=== PATIENT | female | born 1975 | race African-American/Black ===

== ENCOUNTER 2017-07-31 17:30 | Emergency (ER) | payer MEDICAID ==
[2017-07-31 17:32] VITALS: BP 155/87; PULSE 97; RESP 16; TEMP 99; O2SAT 98
--- NOTE | 2017-07-31 19:18 | PD ---
HPI Chief Complaint: Related Problem Time Seen by Provider: 17:54 Travel History International Travel<30 days: No Contact w/Intl Traveler<30days: No Traveled to known affect area: No History of Present Illness HPI Patient is 41-year-old female presenting to the emergency department for evaluation of vaginal bleeding. Patient states it started today, she states it is mild spotting, she denies any clots. Patient reports being approximately 8 weeks . She has had some mild abdominal cramping. She denies any dysuria, vomiting, nausea, fevers. . PFSH Past Medical History Medical History: Denies Significant Hx ?: LMP: 06/11/17 Social History Tobacco Use: No Allergies-Medications (Allergen,Severity, Reaction): Coded Allergies: No Known Allergies (Unverified , 07/31/17) Review of Systems Except as stated in HPI: all other systems reviewed are Neg Gastrointestinal: Positive: Abdominal Pain (cramping) Genitourinary: Positive: Vaginal Bleeding Physical Exam Narrative GENERAL: Well developed, well-nourished, alert female. In no acute distress. SKIN: Warm and dry. HEAD: Normocephalic. EYES: No scleral icterus. No injection or drainage. NECK: Supple, trachea midline. No JVD or lymphadenopathy. CARDIOVASCULAR: Regular rate RESPIRATORY: No accessory muscle use. Data Data Last Documented VS Vital Signs Date Time Temp Pulse Resp B/P (MAP) Pulse Ox O2 Delivery O2 Flow Rate FiO2 07/31/17 17:32 99.0 97 16 155/87 (109) 98 Orders [facility] [place] Medical Decision Making Medical Screen Exam Complete: Yes Emergency Medical Condition: Yes Interpretation(s) Vital Signs Date Time Temp Pulse Resp B/P (MAP) Pulse Ox O2 Delivery O2 Flow Rate FiO2 07/31/17 17:32 99.0 97 16 155/87 (109) 98 Differential Diagnosis Threatened miscarriage versus ectopic versus UTI versus other Narrative Course Patient is a 41-year-old female that presented to emergency for evaluation of vaginal bleeding during . Patient's vital signs are stable, she is awaiting bed placement. Protocol orders placed in triage. Patient was called to be petted, she was no longer in the emergency department. Patient left AGAINST MEDICAL ADVICE. Diagnosis Primary Impression: Left against medical advice Penny Randolph Jul 31, 2017 19:18
== END 2017-07-31 19:28 | disposition left against medical advice (07) ==
LOC: NED 17:30
DX: O46.91 Antepartum hemorrhage, unspecified, first trimester (principal); Z3A.08 8 weeks gestation of pregnancy
CPT/HCPCS: 99281

== ENCOUNTER → 2017-08-29 | Outpatient (CLI) | payer MEDICARE | LOC: HPND 08:40 | PROVIDERS: ATTEND Obstetrics & Gynecology | DX: O09.521 Supervision of elderly multigravida, first trimester (principal) | CPT/HCPCS: 76801 ==

== ENCOUNTER 2017-10-02 05:40 | Emergency (ER) | payer MEDICARE ==
[~2017-10-02] VITALS: Ht 167.6 cm; Wt 115.0 kg
[2017-10-02 05:46] VITALS: BP 132/67; PULSE 102; RESP 18; TEMP 98.7; O2SAT 94
[2017-10-02] MEDS ORDERED: SODIUM CHLOR 0.9% 1000 ML INJ 1,000 ML IV ONE (06:30)
[2017-10-02] MEDS ORDERED: ONDANSETRON HCL 4 MG/2 ML VIAL IV ONE (06:30)
--- NOTE | 2017-10-02 07:01 | PD ---
HPI Chief Complaint: GI Complaint Time Seen by Provider: 06:11 Travel History International Travel<30 days: No Contact w/Intl Traveler<30days: No Traveled to known affect area: No History of Present Illness HPI The patient is a 41 year old female at 15 weeks gestation who presents to the [facility] emergency department with a history of nausea and vomiting that she reports is been persistent since she first found out she was in her early . She reports that she was given a nausea medication by her [employer]LAY [employer]PER[employer], however she ran out of it just prior to the weekend. Her CLAY TEMPERER is . The patient reports that she has had her initial ultrasound in this which confirmed an intrauterine at 10 weeks and August 25, 2017. She denies having any vaginal bleeding or vaginal discharge. She reports that she believes that she has started to feel the baby move. She reports that she has had vomiting at least one time per day. She reports that the vomiting has become more aggressive through the weekend since she ran out of the nausea medication. She reports that she has noticed what appeared to be some blood-tinged emesis. She denies having any dysuria, hematuria, urinary urgency, or frequency. She denies having any new or worsening lower extremity edema. She reports that she has midepigastric abdominal pain and a sensation of burning when she lies down. She reports that she has had reflux in the past, however it is usually more prominent only when she eats spicy foods. On review of systems otherwise, the patient denies having any known recent fevers, cough, congestion, neck pain, chest pain, shortness of breath, diarrhea, or neurologic symptoms. LMP: June 11, 2017. [facility] Past Medical History Narrative Medical the patient's past medical history is significant for having a miscarriage in early in 2016, history of intermittent acid reflux. Medical History: Denies Significant Hx ?: Past Surgical History Narrative Surgical The patient's past surgical history is significant for having a left leg. Other Surgery: Yes Social History Alcohol Use: No Tobacco Use: No Substance Use: No Allergies-Medications (Allergen,Severity, Reaction): Coded Allergies: No Known Allergies (Unverified , 10/02/17) Reported Meds & Prescriptions Reported Meds & Active Scripts Active No Active Prescriptions or Reported Medications Review of Systems Except as stated in HPI: all other systems reviewed are Neg General / Constitutional: No: Fever Eyes: No: Visual changes HENT: No: Headaches Cardiovascular: No: Chest Pain or Discomfort Respiratory: No: Shortness of Breath Gastrointestinal: Positive: Nausea, Vomiting, Abdominal Pain, Indigestion, No: Diarrhea Genitourinary: No: Dysuria Musculoskeletal: No: Pain Skin: No Rash Neurologic: No: Weakness Psychiatric: No: Depression Endocrine: No: Polydipsia Hematologic/Lymphatic: No: Easy Bruising Physical Exam Narrative General: The patient is a well-developed well-nourished female in no acute distress. Head and Neck exam: Head is normocephalic atraumatic. Eyes: EOMI, pupils are equal round and reactive to light. Nose: Midline septum with pink mucous membranes Mouth: Dentition unremarkable. Moist mucus membranes. Posterior oropharynx is not erythematous. No tonsillar hypertrophy. Uvula midline. Airway patent. Neck: No palpable lymphadenopathy. No nuchal rigidity. No thyromegaly. Cardiovascular: Regular rate and rhythm without murmurs, gallops, or rubs. Lungs: Clear to auscultation bilaterally. No wheezes, rhonchi, or rales. Abdomen: Soft, with reported discomfort on deep palpation of the midepigastric area, no other tenderness on palpation of the other quadrants of the abdomen. Normal bowel sounds are audible. No tenderness on palpation of McBurney's point. Negative Cox sign. No guarding, rebound, or rigidity. Extremities: No clubbing, cyanosis, or edema. 2+ pulses in all 4 extremities. No calf tenderness on palpation Back: No costovertebral angle tenderness to palpation. Neurologic Exam: Grossly nonfocal. Skin Exam: No rash noted. Intact skin that is warm and dry. Data Data Last Documented VS Vital Signs Date Time Temp Pulse Resp B/P (MAP) Pulse Ox O2 Delivery O2 Flow Rate FiO2 10/02/17 05:46 98.7 102 18 132/67 (88) 94 Orders Orders Complete Blood Count With Diff (10/02/17 06:24) Comprehensive Metabolic Panel (10/02/17 06:24) Urinalysis - C+S If Indicated (10/02/17 06:24) Magnesium (Mg) (10/02/17 06:24) Iv Access Insert/Monitor (10/02/17 06:24) Ecg Monitoring (10/02/17 06:24) Oximetry (10/02/17 06:24) Type And Screen (10/02/17 06:24) Ed Urine Pregnancytest Poc (10/02/17 06:24) Sodium Chlor 0.9% 1000 Ml Inj (Ns 1000 M (10/02/17 06:30) Ondansetron Inj (Zofran Inj) (10/02/17 06:30) Ed Poc Ultrasound (10/02/17 ) [facility] Medical Decision Making Medical Screen Exam Complete: Yes Emergency Medical Condition: Yes Medical Record Reviewed: Yes Differential Diagnosis Gastritis, versus hemorrhagic esophagitis, versus pancreatitis, versus biliary colic Narrative Course During the course of the patient's emergency department visit, the patient's history, examination, and differential diagnosis were reviewed with the patient. The patient was placed on a fiberglass boat maker with oximetry and frequent blood pressure monitoring. The patient had IV access obtained and blood work sent for analysis. A bedside ultrasound was done by me through transabdominal route. The patient was noted to have an active intrauterine . heart tones were in the 150s. The patient was initially provided normal saline 1 L IV fluid bolus, Zofran 4 mg IV. The patient's laboratory studies are pending at the conclusion of my shift. The patient's case will be checked out to the oncoming emergency physician to disposition the patient based on the conclusion of her workup. Procedures Procedure Narrative Emergency Department Pelvic ultrasound was performed with patient consent. The curvilinear probe was used in the transverse and sagittal views within the suprapubic region revealing single intrauterine . heart rate was 156. The patient is noted to have an active fetus on examination Diagnosis Primary Impression: Abdominal pain during Qualified Codes: O26.892 - Other specified related conditions, second trimester; R10.9 - Unspecified abdominal pain Additional Impression: Vomiting Qualified Codes: R11.2 - Nausea with vomiting, unspecified Scripts No Active Prescriptions or Reported Meds Fabi Johnson MD Oct 02, 2017 07:01
[2017-10-02 07:03] LABS: AUTOMATED NEUTROPHIL # 7.8 TH/MM3 (1.8-7.7); BACTERIA, URINE RARE /hpf; BASOPHIL # 0.1 TH/MM3 (0-0.2); BASOPHIL % 0.8 % (0.0-2.0); BILIRUBIN, URINE NEG (NEG); BLOOD, URINE TRACE (NEG); EOSINOPHIL # 0.4 TH/MM3 (0-0.4); EOSINOPHIL % 3.4 % (0.0-4.0); GLUCOSE,URINE NEG (NEG); HEMATOCRIT 32.2 % (35.0-46.0); HEMOGLOBIN 11.2 GM/DL (11.6-15.3); HYALINE CAST, URINE 1 /lpf (RARE); KETONE, URINE 40 mg/dL (NEG); LYMPH % 17.3 % (9.0-44.0); LYMPHOCYTE # 1.8 TH/MM3 (1.0-4.8); MEAN CORPUSCULAR HEMOGLOBIN 31.4 PG (27.0-34.0); MEAN CORPUSCULAR HGB CONC 34.8 % (32.0-36.0); MEAN PLATELET VOLUME 7.3 FL (7.0-11.0); MONO % 4.9 % (0.0-8.0); MONOCYTE # 0.5 TH/MM3 (0-0.9); MUCUS URINE MOD /lpf (OCC); NEUT % 73.6 % (16.0-70.0); NITRITE,URINE NEG (NEG); PH, URINE 5.5 (5.0-8.5); PLATELET COUNT 270 TH/MM3 (150-450); RED BLOOD COUNT 3.57 MIL/MM3 (4.00-5.30); SQUAMOUS EPITHELIAL CELL URINE 20 /hpf (0-5); URINE COLOR YELLOW (YELLW/STRAW); URINE LEUKOCYTE ESTERASE MOD (NEG); WHITE BLOOD COUNT 10.6 TH/MM3 (4.0-11.0)
[2017-10-02 07:09] LABS: ALT (GPT) 33 U/L (10-53); AST (GOT) 14 U/L (15-37); BICARBONATE 23.2 MEQ/L (21.0-32.0); BLOOD UREA NITROGEN 6 MG/DL (7-18); CALCIUM 8.5 MG/DL (8.5-10.1); CHLORIDE 104 MEQ/L (98-107); CREATININE 0.57 MG/DL (0.50-1.00); GLOMERULAR FILTRATION RATE 142 ML/MIN (>89); GLUCOSE,RANDOM 96 MG/DL (74-106); MAGNESIUM 1.9 MG/DL (1.5-2.5); SODIUM (NA) 136 MEQ/L (136-145)
[2017-10-02 07:11] LABS: ALKALINE PHOSPHATASE 51 U/L (45-117); TOTAL BILIRUBIN ADULT 0.5 MG/DL (0.2-1.0)
[2017-10-02] MEDS ORDERED: POTA10TA2 PO (08:17)
[2017-10-02] MEDS ORDERED: DOXY10TA PO (08:17)
[2017-10-02] MEDS ORDERED: CEPH-459 PO (08:17)
--- NOTE | 2017-10-02 08:18 | PD ---
Data Data Last Documented VS Vital Signs Date Time Temp Pulse Resp B/P (MAP) Pulse Ox O2 Delivery O2 Flow Rate FiO2 10/02/17 05:46 98.7 102 18 132/67 (88) 94 Orders Orders Complete Blood Count With Diff (10/02/17 06:24) Comprehensive Metabolic Panel (10/02/17 06:24) Urinalysis - C+S If Indicated (10/02/17 06:24) Magnesium (Mg) (10/02/17 06:24) Iv Access Insert/Monitor (10/02/17 06:24) Ecg Monitoring (10/02/17 06:24) Oximetry (10/02/17 06:24) Type And Screen (10/02/17 06:24) Ed Urine Pregnancytest Poc (10/02/17 06:24) Sodium Chlor 0.9% 1000 Ml Inj (Ns 1000 M (10/02/17 06:30) Ondansetron Inj (Zofran Inj) (10/02/17 06:30) Ed Poc Ultrasound (10/02/17 ) Lipase (10/02/17 07:06) Labs Laboratory Tests Test 10/02/17 06:34 White Blood Count 10.6 TH/MM3 Red Blood Count 3.57 MIL/MM3 Hemoglobin 11.2 GM/DL Hematocrit 32.2 % Mean Corpuscular Volume 90.0 FL Mean Corpuscular Hemoglobin 31.4 PG Mean Corpuscular Hemoglobin Concent 34.8 % Red Cell Distribution Width 14.0 % Platelet Count 270 TH/MM3 Mean Platelet Volume 7.3 FL Neutrophils (%) (Auto) 73.6 % Lymphocytes (%) (Auto) 17.3 % Monocytes (%) (Auto) 4.9 % Eosinophils (%) (Auto) 3.4 % Basophils (%) (Auto) 0.8 % Neutrophils # (Auto) 7.8 TH/MM3 Lymphocytes # (Auto) 1.8 TH/MM3 Monocytes # (Auto) 0.5 TH/MM3 Eosinophils # (Auto) 0.4 TH/MM3 Basophils # (Auto) 0.1 TH/MM3 CBC Comment DIFF FINAL Differential Comment Urine Color YELLOW Urine Turbidity HAZY Urine pH 5.5 Urine Specific [place] 1.024 Urine Protein TRACE mg/dL Urine Glucose (UA) NEG mg/dL Urine Ketones 40 mg/dL Urine Occult Blood TRACE Urine Nitrite NEG Urine Bilirubin NEG Urine Urobilinogen LESS THAN 2.0 MG/DL Urine Leukocyte Esterase MOD Urine RBC 3 /hpf Urine WBC 4 /hpf Urine Squamous Epithelial Cells 20 /hpf Urine Bacteria RARE /hpf Urine Hyaline Casts 1 /lpf Urine Mucus MOD /lpf Microscopic Urinalysis Comment CULT NOT INDICATED Blood Urea Nitrogen 6 MG/DL Creatinine 0.57 MG/DL Random Glucose 96 MG/DL Total Protein 7.0 GM/DL Albumin 3.0 GM/DL Calcium Level 8.5 MG/DL Magnesium Level 1.9 MG/DL Alkaline Phosphatase 51 U/L Aspartate Amino Transf (AST/SGOT) 14 U/L Alanine Aminotransferase (ALT/SGPT) 33 U/L Total Bilirubin 0.5 MG/DL Sodium Level 136 MEQ/L Potassium Level 3.4 MEQ/L Chloride Level 104 MEQ/L Carbon Dioxide Level 23.2 MEQ/L Anion Gap 9 MEQ/L Estimat Glomerular Filtration Rate 142 ML/MIN [facility] Medical Record Reviewed: Yes Supervised Visit with PARK: No Narrative Course Patient was reassessed at 8:10 AM and found to be resting comfortably. She reports that appointment as scheduled with Dr. Goodwin in about 2 weeks' time. We discussed return precautions. Typically just prescription written along with Keflex and potassium. Return precautions discussed. Results of today's workup included mild hypokalemia at 3.2 and a workup which is essentially otherwise unremarkable aside for moderate leukocyte esterase potentially consistent with asymptomatic bacteriuria. Diagnosis Primary Impression: Abdominal pain during Qualified Codes: O26.892 - Other specified related conditions, second trimester; R10.9 - Unspecified abdominal pain Additional Impression: Vomiting Qualified Codes: R11.2 - Nausea with vomiting, unspecified Med/Other Pt SpecificInfo: Prescription(s) given Scripts Cephalexin (Keflex) 250 Mg Cap 250 MG PO Q6H for Infection for 5 Days, #20 CAP 0 Refills Prov: Xavier Blanc MD 10/02/17 Doxylamine-Pyridoxine (Diclegis) 10-10 Mg Tab 1 TAB PO DIRECTED Y for NAUSEA OR VOMITING, #30 Prov: Xavier Blanc MD 10/02/17 Potassium Chloride ER (Potassium Chloride ER) 10 Meq Tab 10 MEQ PO DAILY for Electrolyte Replacement for 7 Days, #7 TAB 0 Refills Prov: Xavier Blanc MD 10/02/17 Disposition: 01 DISCHARGE HOME Condition: Stable Xavier Blanc MD Oct 02, 2017 08:18
[2017-10-02 08:39] VITALS: BP 120/78
== END 2017-10-02 08:44 | disposition home or self-care (01) ==
LOC: NEPE 05:40
DX: O26.892 Other specified pregnancy related conditions, second trimester (principal); R10.9 Unspecified abdominal pain; R11.2 Nausea with vomiting, unspecified; Z3A.15 15 weeks gestation of pregnancy
CPT/HCPCS: 80053; 81001; 83690; 83735; 84703; 85025; 86850; 86900; 86901; 96374; 99284; J2405; J7030

== ENCOUNTER 2017-10-17 06:32 | Inpatient (IN) | payer MEDICARE, MEDICAID ==
[2017-10-17] VITALS (38 sets, daily range): BP systolic 99–131; BP diastolic 43–93; PULSE 72–98; RESP 16–18; TEMP 98.4–98.7; O2SAT 97–99
[~2017-10-17] VITALS: Ht 167.6 cm; Wt 113.0 kg
[~2017-10-17 06:32] MED LIST: CEPH-459 PO; DOXY10TA PO; POTA10TA2 PO
--- NOTE | 2017-10-17 07:29 | HHI.HP ---
HPI Chief Complaint demise Date Seen: Oct 17, 2017 Travel History International Travel<30 Days: No Contact w/Intl Traveler<30Days: No History of Present Illness HPI Mrs. Huang is a 41 yo at 17 weeks GA who presents after delivering fetus this morning at ~0500. Patient states that this happened after sneezing. She did not have subsequent vaginal bleeding; she states her placenta is still retained. Patient reports having knowledge of perilous status for ~1 week; she had ultrasound which showed oligohydramnios ~1 week ago. Patient also sought two MFM opinions in [place], [place] who recommended induction. Patient reports having some cold sweats last night but denies fever. Patient does not have current abdominal pain. No dysuria. No chest pain, shortness of breath, nausea/vomiting, or other symptoms at this time. Weeks Gestation: 17 History Past Medical History Narrative Medical PCOS Obstetric History Obstetric History Past Surgical History Narrative Surgical Hysteroscopy Unspecified ankle surgery Family History Family History: Negative Social History Alcohol Use: No Tobacco Use: No Substance Abuse: No Allergies-Medications (Allergen,Severity, Reaction): Coded Allergies: No Known Allergies (Unverified , 10/02/17) Home Meds Active Scripts Cephalexin (Keflex) 250 Mg Cap, 250 MG PO Q6H for Infection for 5 Days, #20 CAP 0 Refills Prov:Xavier Blanc MD 10/02/17 Doxylamine-Pyridoxine (Diclegis) 10-10 Mg Tab, 1 TAB PO DIRECTED Y for NAUSEA OR VOMITING, #30 Prov:Xavier Blanc MD 10/02/17 Potassium Chloride ER (Potassium Chloride ER) 10 Meq Tab, 10 MEQ PO DAILY for Electrolyte Replacement for 7 Days, #7 TAB 0 Refills Prov:Xavier Blanc MD 10/02/17 Review of Systems General / Constitutional: No: Fever Eyes: No: Blurred Vision HENT: No: Headaches Cardiovascular: No: Chest Pain or Discomfort, Palpitations Respiratory: No: Cough, Short of Breath Gastrointestinal: No: Nausea, Vomiting, Abdominal Pain Genitourinary: No: Urgency, Dysuria Skin: No Rash, No Itching Neurologic: No: Weakness, Dizziness Psychiatric: No: Anxiety, Depression Physical Exam T 98 BP 102/60 HR 97 Narrative GENERAL: Well-nourished, well-developed patient. SKIN: Warm and dry. HEAD: Normocephalic and atraumatic. EYES: No scleral icterus. No injection or drainage. ENT: No nasal drainage noted. Mucous membranes pink. Airway patent. NECK: Supple, trachea midline. No JVD. CARDIOVASCULAR: Regular rate and rhythm without murmurs RESPIRATORY: CTAB; normal rate EXTREMITIES: No cyanosis or edema. NEUROLOGICAL: Awake and alert. Motor and sensory grossly within normal limits. Normal speech. ABDOMEN/GI: Abdomen soft, non-tender, bowel sounds present, no rebound, no guarding Gravid GENITOURINARY: External Genitalia: umbilical cord visible from vaginal orifice Caprini VTE Risk Assessment Caprini VTE Risk Assessment: Mod/High Risk (score >= 2) Caprini Risk Assessment Model Point Value = 1 Point Value = 2 Point Value = 3 Point Value = 5 Age 41-60 Minor surgery BMI > 25 kg/m2 Swollen legs Varicose veins or History of unexplained or recurrent spontaneous Oral contraceptives or hormone replacement Sepsis (< 1 month) Serious lung disease, including pneumonia (< 1 month) Abnormal pulmonary function Acute myocardial infarction Congestive heart failure (< 1 month) History of inflammatory bowel disease Medical patient at bed rest Age 61-74 Arthroscopic surgery Major open surgery (> 45 min) Laparoscopic surgery (> 45 min) Malignancy Confined to bed (> 72 hours) Immobilizing plaster cast Central venous access Age >= 75 History of VTE Family history of VTE Factor V Leiden Prothrombin [id number] Lupus anticoagulant Anticardiolipin antibodies Elevated serum homocysteine Heparin-induced thrombocytopenia Other congenital or acquired thrombophilia Stroke (< 1 month) Elective arthroplasty Hip, pelvis, or leg fracture Acute spinal cord injury (< 1 month) Prophylaxis Regimen Total Risk Factor Score Risk Level Prophylaxis Regimen 0-1 Low Early ambulation 2 Moderate Order ONE of the following: *Sequential Compression Device (SCD) *Heparin 5000 units SQ BID 3-4 Higher Order ONE of the following medications: *Heparin 5000 units SQ TID *Enoxaparin/Lovenox 40 mg SQ daily (WT < 150 kg, CrCl > 30 mL/min) *Enoxaparin/Lovenox 30 mg SQ daily (WT < 150 kg, CrCl > 10-29 mL/min) *Enoxaparin/Lovenox 30 mg SQ BID (WT < 150 kg, CrCl > 30 mL/min) AND/OR *Sequential Compression Device (SCD) 5 or more Highest Order ONE of the following medications: *Heparin 5000 units SQ TID (Preferred with Epidurals) *Enoxaparin/Lovenox 40 mg SQ daily (WT < 150 kg, CrCl > 30 mL/min) *Enoxaparin/Lovenox 30 mg SQ daily (WT < 150 kg, CrCl > 10-29 mL/min) *Enoxaparin/Lovenox 30 mg SQ BID (WT < 150 kg, CrCl > 30 mL/min) AND *Sequential Compression Device (SCD) Data Data Vital Signs Reviewed: Yes Assessment/Plan Assessment and Plan 41 yo at 17 weeks GA who presents after delivering fetus this morning at ~0500. -Placenta retained on exam -stable maternal VS -No signs of maternal infection Plan: -Will initiate Cytotec vaginally: 600mcg followed by 400mcg q3 hrs -Continue to monitor VS -Pain control as needed -Will check CBC, blood typing Chauncey Mccracken MD, R3 Oct 17, 2017 07:29
[2017-10-17] MEDS ORDERED: IBUPROFEN 800 MG TAB PO PRN (08:00)
[2017-10-17] MEDS ORDERED: ACETAMINOPHEN 325 MG TAB PO PRN (08:00)
[2017-10-17] MEDS ORDERED: SODIUM CHLORIDE 0.9% FLUSH 10 ML FLUSH IV FLUSH PRN (08:00)
[2017-10-17] MEDS ORDERED: oxyCODONE/ACETAMINOPHEN 5 MG/325 MG TAB PO PRN ×4 (08:00→16:00)
[2017-10-17] MEDS ORDERED: MISOPROSTOL 200 MCG TAB VAGINAL ONE (08:00)
[2017-10-17] MEDS: SODIUM CHLORIDE 0.9% FLUSH 10 ML FLUSH IV FLUSH SCH ×2 (09:00→21:00)
[2017-10-17 09:52] LABS: AUTOMATED NEUTROPHIL # 9.7 TH/MM3 (1.8-7.7); BASOPHIL % 0.3 % (0.0-2.0); EOSINOPHIL # 0.2 TH/MM3 (0-0.4); EOSINOPHIL % 2.1 % (0.0-4.0); HEMATOCRIT 32.3 % (35.0-46.0); HEMOGLOBIN 10.7 GM/DL (11.6-15.3); LYMPH % 10.3 % (9.0-44.0); LYMPHOCYTE # 1.2 TH/MM3 (1.0-4.8); MEAN CELL VOLUME 90.7 FL (80.0-100.0); MEAN CORPUSCULAR HEMOGLOBIN 30.1 PG (27.0-34.0); MEAN CORPUSCULAR HGB CONC 33.2 % (32.0-36.0); MEAN PLATELET VOLUME 7.6 FL (7.0-11.0); MONO % 6.3 % (0.0-8.0); MONOCYTE # 0.7 TH/MM3 (0-0.9); PLATELET COUNT 296 TH/MM3 (150-450); RED BLOOD COUNT 3.57 MIL/MM3 (4.00-5.30); RED CELL DISTRIBUTION WIDTH 14.4 % (11.6-17.2); WHITE BLOOD COUNT 11.9 TH/MM3 (4.0-11.0)
[2017-10-17] MEDS ORDERED: MISOPROSTOL 200 MCG TAB VAGINAL SCH (10:45)
--- NOTE | 2017-10-17 10:51 | PD.LABORPN ---
Subjective Subjective pt. in bed. having some vb. pt. deliver at home at 17 weeks. pt. not deliver placenta yet and has received vaginal cytotec. pt. deliver ~ 5 hours ago. pt. checked and placenta not in cervical os and pt. is ~ 3cm dilated. Objective Vital Signs Vital Signs Date Time Temp Pulse Resp B/P (MAP) Pulse Ox O2 Delivery O2 Flow Rate FiO2 10/17/17 10:15 92 99/61 (74) 10/17/17 10:00 92 106/61 (76) 10/17/17 09:46 88 109/67 (81) 10/17/17 09:30 90 118/67 (84) 10/17/17 09:15 86 114/70 (85) 10/17/17 09:00 83 109/64 (79) 10/17/17 08:46 91 101/62 (75) 10/17/17 08:15 89 105/61 (76) 10/17/17 08:00 86 106/62 (77) Objective cervix: 3cm with cord from os. Weeks Gestation: 17 Assessment/Plan Assessment and Plan pt. to have low dose pitocin and buccal cytotec. pt. to be rechecked and have d /c prn if no delivery. Scott Latham Jr., MD Oct 17, 2017 10:51
[2017-10-17] MEDS ORDERED: OXYTOCIN 30 UNITS-500ML PREMIX 500 ML IV PRN (11:00)
[2017-10-17] MEDS ORDERED: LACTATED RINGER'S 1000 ML INJ 1,000 ML IV SCH (11:30)
[2017-10-17] MEDS: MISOPROSTOL 200 MCG TAB SCH ×2 (11:31→15:00)
[2017-10-17] MEDS ORDERED: OXYTOCIN 10 UNIT/ML AMP IV ONE (12:00)
[2017-10-17] MEDS ORDERED: ONDANSETRON HCL 4 MG/2 ML VIAL IV ONE (12:00)
[2017-10-17] MEDS ORDERED: ceFAZolin INJ 1,000 MG VIAL IV ONE (12:00)
[2017-10-17] MEDS ORDERED: PROPOFOL 200 MG/20 ML AMP IV ONE (12:00)
[2017-10-17] MEDS ORDERED: LIDOCAINE HCL 1% PF 5 ML SYRINGE OTHER ONE (12:00)
[2017-10-17] MEDS ORDERED: SUCCINYLCHOLINE CHLORIDE 200 MG/10 ML VIAL IV ONE (12:00)
[2017-10-17] MEDS ORDERED: DEXAMETHASONE SOD PHOS 4 MG/ML VIAL IV ONE (12:00)
[2017-10-17] MEDS ORDERED: MIDAZOLAM HCL 2 MG/2 ML VIAL ONE (13:39)
[2017-10-17] MEDS ORDERED: ACETAMINOPHEN 1000 MG/100 ML 100 ML IV ONE (13:39)
[2017-10-17] MEDS ORDERED: METHYLERGONOVINE MALEATE 0.2 MG/ML VIAL ONE (14:03)
[2017-10-17] MEDS ORDERED: KETOROLAC TROMETHAMINE 30 MG/ML (IVP) VIAL IV PUSH ONE (15:05)
[2017-10-17] MEDS ORDERED: KETOROLAC TROMETHAMINE 30 MG/ML (IVP) VIAL ONE (15:07)
--- NOTE | 2017-10-17 16:12 | PD.LABORPN ---
Subjective Subjective called to see pt. by nusing 2/2 severe pain and bleeding. when present to suite , pt. in severe pain writhing in pain on bed. on exam, pt. w/ heavy clotting and bleeding and placenta high in cervical os. 2/2 pain and bleeding and ? expansion of uterus w/ blood behind placenta decision made to take pt. to or for d&c. Objective Vital Signs Vital Signs Date Time Temp Pulse Resp B/P (MAP) Pulse Ox O2 Delivery O2 Flow Rate FiO2 10/17/17 15:36 97 10/17/17 15:35 72 18 122/68 (86) 10/17/17 15:25 97 10/17/17 15:25 90 18 128/67 (87) 10/17/17 15:10 88 16 119/71 (87) 10/17/17 15:10 99 10/17/17 14:55 84 16 119/71 (87) 99 10/17/17 14:40 115/74 (88) 10/17/17 14:40 77 16 99 10/17/17 14:35 99 10/17/17 14:33 98.5 98 18 100/55 (70) 10/17/17 13:16 83 131/84 (100) 10/17/17 13:01 86 131/64 (86) 10/17/17 12:55 98.5 18 10/17/17 12:46 80 129/60 (83) 10/17/17 12:31 94 124/69 (87) 10/17/17 12:16 87 110/60 (77) 10/17/17 12:01 91 125/67 (86) 10/17/17 11:46 92 110/64 (79) 10/17/17 11:40 98.4 18 10/17/17 11:31 92 109/43 (65) 10/17/17 11:00 91 114/70 (85) 10/17/17 10:46 89 114/68 (83) 10/17/17 10:31 91 121/93 (102) 10/17/17 10:15 92 99/61 (74) 10/17/17 10:00 92 106/61 (76) 10/17/17 09:46 88 109/67 (81) 10/17/17 09:30 90 118/67 (84) 10/17/17 09:15 86 114/70 (85) 10/17/17 09:00 83 109/64 (79) 10/17/17 08:46 91 101/62 (75) 10/17/17 08:15 89 105/61 (76) Objective Pelvic Exam: Cervix: [-] Dilatation: [-] Effacement: [-] Station: [-] Presentation: [-] Membranes: [intact or ruptured] Uterine Contractions: [-] FHT's: Category: [-] Baseline: [-] Reactive: [-] Variability: [-] Decels: [-] Weeks Gestation: 17 Assessment/Plan Assessment and Plan pt. w/ retained placenta w/ ? contained bleeding. d&c d/w pt. earlier in day. risks/benefits and alternatives d/w pt. all ? answered. pt. sign consent w/o coercion. Scott Latham Jr., MD Oct 17, 2017 16:12
--- NOTE | 2017-10-17 16:14 | PD.OP ---
Operative Report Date of Surgery: Oct 17, 2017 Preoperative Diagnosis: (1) 17 weeks gestation of (2) Spontaneous in second trimester (3) Retained placenta Postoperative Diagnosis: (1) Spontaneous in second trimester (2) Retained placenta (3) 17 weeks gestation of Procedure: examination under anesthesia, curettage, removal of placenta Anesthesia: general Surgeon: Scott Latham Dairy Nutritionist(s): staff Operation and Findings: Findings: retained placenta, large amount of clot. Procedure: pt. was taken to the or w/ ivf running. she was identified and anesthesia was induced. she was prepped and draped in the the dorsal lithotomy position. a weighted speculum was placed in the patients vagina. the umbilical cord was noted from the cervical os. ring forceps were used to remove the placenta in pieces. large clot was removed from the uterus. the banjo currette was used w/ multiple passes to remove the rest of the placenta. the patient was noted to have heavy bleeding 2/2 uterine atony. pt. was given a dose of methergine and uterine massage was used to improve uterine tone and hemostasis was noted. the weighted spec was removed. sponge, lap and needle counts were correct x 2. pt. received 2 gms of ancef and was transferred to pacu in stable condition. Scott Latham Jr., MD Oct 17, 2017 16:14
[2017-10-17] MEDS ORDERED: HYDROmorphone HCL PF 2 MG/ML VIAL IV PRN (16:15)
[2017-10-17] MEDS: DEXTROSE 5%-LACTATED RING INJ 1,000 ML IV SCH (16:16)
[2017-10-17 17:47] LABS: AUTOMATED NEUTROPHIL # 15.5 TH/MM3 (1.8-7.7); BASOPHIL % 0.3 % (0.0-2.0); EOSINOPHIL # 0.1 TH/MM3 (0-0.4); EOSINOPHIL % 0.5 % (0.0-4.0); HEMATOCRIT 29.4 % (35.0-46.0); HEMOGLOBIN 10.3 GM/DL (11.6-15.3); LYMPH % 5.2 % (9.0-44.0); LYMPHOCYTE # 0.9 TH/MM3 (1.0-4.8); MEAN CORPUSCULAR HEMOGLOBIN 31.5 PG (27.0-34.0); MEAN PLATELET VOLUME 7.1 FL (7.0-11.0); MONO % 3.6 % (0.0-8.0); MONOCYTE # 0.6 TH/MM3 (0-0.9); NEUT % 90.4 % (16.0-70.0); PLATELET COUNT 268 TH/MM3 (150-450); RED BLOOD COUNT 3.26 MIL/MM3 (4.00-5.30); RED CELL DISTRIBUTION WIDTH 14.4 % (11.6-17.2); WHITE BLOOD COUNT 17.2 TH/MM3 (4.0-11.0)
[2017-10-17] MEDS ORDERED: KETOROLAC TROMETHAMINE 30 MG/ML (IVP) VIAL IV PUSH PRN (21:00)
[2017-10-18] MEDS: DEXTROSE 5%-LACTATED RING INJ 1,000 ML IV SCH
[2017-10-18 05:54] LABS: AUTOMATED NEUTROPHIL # 12.4 TH/MM3 (1.8-7.7); BASOPHIL % 0.3 % (0.0-2.0); EOSINOPHIL # 0.2 TH/MM3 (0-0.4); EOSINOPHIL % 1.2 % (0.0-4.0); HEMATOCRIT 25.3 % (35.0-46.0); HEMOGLOBIN 8.5 GM/DL (11.6-15.3); LYMPH % 10.5 % (9.0-44.0); LYMPHOCYTE # 1.6 TH/MM3 (1.0-4.8); MEAN CELL VOLUME 90.9 FL (80.0-100.0); MEAN CORPUSCULAR HEMOGLOBIN 30.5 PG (27.0-34.0); MEAN CORPUSCULAR HGB CONC 33.5 % (32.0-36.0); MEAN PLATELET VOLUME 7.2 FL (7.0-11.0); MONO % 6.6 % (0.0-8.0); NEUT % 81.4 % (16.0-70.0); PLATELET COUNT 235 TH/MM3 (150-450); RED BLOOD COUNT 2.78 MIL/MM3 (4.00-5.30); RED CELL DISTRIBUTION WIDTH 14.2 % (11.6-17.2); WHITE BLOOD COUNT 15.2 TH/MM3 (4.0-11.0)
[2017-10-18 07:29] VITALS: BP 100/50; PULSE 89
[2017-10-18 07:32] VITALS: RESP 18; TEMP 98.4
--- NOTE | 2017-10-18 08:27 | HHI.PR ---
Subjective Remarks Patient seen and examined this morning. She states that she was doing fine. She has a sore throat from when she was intubated yesterday. She is having light vaginal bleeding. She is ambulating to and from the bathroom. Eating and drinking with no difficulty. No abdominal pain or cramping. No chest pain , no shortness of breath, no lateral calf pain. Objective - Vital Signs Date Time Temp Pulse Resp B/P (MAP) Pulse Ox O2 Delivery O2 Flow Rate FiO2 10/18/17 07:32 98.4 18 10/18/17 07:29 89 100/50 (67) 10/17/17 15:36 97 Result Diagram: 10/18/17 0501 Objective Remarks GENERAL: Well-nourished, well-developed patient. CARDIOVASCULAR: Regular rate and rhythm without murmurs, gallops, or rubs. RESPIRATORY: Breath sounds equal bilaterally. No accessory muscle use. ABDOMEN/GI: Abdomen soft, non-tender. Fundus: Firm, non-tender at umbilicus. GENITOURINARY: Light to moderate bleeding. EXTREMITIES: No cyanosis or edema, non-tender, without signs of DVT. A/P Problem List: (1) Spontaneous in second trimester ICD Code: O03.9 - Complete or unspecified spontaneous without complication Status: Acute Assessment & Plan: 41 yo who presents after delivering 17 weeks GA fetus on 10/17 at ~0500. -Placenta retained on initial exam upon admission Plan: -s/p Cytotec buccally: 600mcg followed by 400mcg q3 hrs -s/p D&C on 10/17 to remove retained placenta -Continue to monitor VS -Pain control as needed WDW Dr. Latham D/C home today (2) Retained placenta ICD Code: O73.0 - Retained placenta without hemorrhage Status: Acute Problem Qualifiers (1) Retained placenta: Qualified Codes: O73.0 - Retained placenta without hemorrhage Diana Crowley MD R1 Oct 18, 2017 08:27
[2017-10-18] MEDS ORDERED: PHENOL 1.4% SOLN 180 ML BTL OROPHARYNG PRN (08:30)
[2017-10-18] MEDS: SODIUM CHLORIDE 0.9% FLUSH 10 ML FLUSH IV FLUSH SCH (08:57)
--- NOTE | 2017-10-18 10:01 | HHI.DCPOC ---
Discharge Care Plan Diagnosis: (1) Spontaneous in second trimester (2) Retained placenta Report Symptoms to Your Doctor -Temperature above 100.5 degrees -Redness, of incision or excessive or foul smelling drainage -Unusual pain or calf pain -Increased vaginal bleeding -Painful or difficulty urinating -Feelings of extreme sadness or anxiety after 2 weeks Goals to Promote Your Health * To prevent worsening of your condition and complications * To maintain your health at the optimal level Directions to Meet Your Goals Take your medications as prescribed Follow your dietary instruction Follow activity as directed Ensure plenty of rest for recovery Drink fluids for hydration Keep your appointments as scheduled Take your immunizations and boosters as scheduled If your symptoms worsen call your PCP, if no PCP go to Urgent Care Center or Emergency Room Smoking is Dangerous to Your Health. Avoid second hand smoke Call the 24-hour crisis hotline for domestic abuse at Diana Crowley MD R1 Oct 18, 2017 10:01
== END 2017-10-18 10:18 | disposition home or self-care (01) | DRG 770 ==
LOC: H2EB 06:32
PROVIDERS: ADMIT Obstetrics & Gynecology; ATTEND Obstetrics & Gynecology
PROC: 3E0P7VZ Introduction of Hormone into Female Reproductive, Via Natural or Artificial Opening (ICD-10-PCS; principal; 2017-10-17)
PROC: 10D17ZZ Extraction of Products of Conception, Retained, Via Natural or Artificial Opening (ICD-10-PCS; 2017-10-17)
DX: O03.4 Incomplete spontaneous abortion without complication (principal); O41.00X0 Oligohydramnios, unspecified trimester, not applicable or unspecified; O73.0 Retained placenta without hemorrhage; Z3A.17 17 weeks gestation of pregnancy; O62.2 Other uterine inertia
CPT/HCPCS: 80307; 85025; 86850; 86900; 86901; 88300; 88305; G0481; J0131; J0330; J0690; J1100; J1885; J2210; J2250; J2405; J2590; J3010; J7120; J7121

== ENCOUNTER 2018-06-18 05:34 | Observation (INO) ==
--- NOTE | 2018-06-13 10:15 | MH ---
cc: Jeffery Garcia MD DATE OF ADMISSION: 06/18/2018 HISTORY OF PRESENT ILLNESS: This patient is a 42-year-old black female. She is 3, para 0, who is being admitted to [facility] for further treatment of cervical incontinence. The patient is well known to our practice and has been seen through this . She is approximately 20 weeks' gestation. Recently, maternal medicine saw her, and remarked that her cervix was already shortened to 20 mm, and that a cerclage was recommended. We discussed with the patient and she has consented to proceed with this procedure. OBSTETRICAL HISTORY: Significant that she has had second trimester demises, each one was approximately 17 weeks. PAST MEDICAL HISTORY: Significant that throughout this , she is hypothyroid, and has been on thyroid supplementation. FAMILY HISTORY: Significant that her father has diabetes, and her mother has hypertension. SOCIAL HISTORY: She is a nonsmoker and denies any drug abuse. PAST SURGICAL HISTORY: Significant for dilation and curettage after her demise. REVIEW OF SYSTEMS: Essentially noncontributory. PHYSICAL EXAMINATION: GENERAL: The patient was seen well-developed, well-nourished, no acute distress. VITAL SIGNS: Weight was 265 pounds. Blood pressure is 126/70, pulse was 70. HEENT: Negative. CHEST: Clear to auscultation. CARDIOVASCULAR: Revealed a regular rate. ABDOMEN: Obese. Bowel sounds are positive. heart rate was found to be in the 150 range. PELVIC: External genitalia was within normal limits. Cervix was not dilated; however, was effaced. There were no adnexal masses palpable. EXTREMITIES: Reveal no cyanosis, clubbing, or edema. NEUROPSYCHIATRIC: The patient is oriented x3 and showed no gross neurocranial nerve deficit. IMPRESSION ON ADMISSION: Maternal obesity, hypothyroidism, cervical incontinence. PLAN: Proceed with a cervical cerclage. Jeffery Garcia MD JSG/rh , 09:54 AM , 10:02 AM [facility]
[2018-06-18] MEDS ORDERED: Metoprolol Tartrate 25 MG Tablet PO ONE (06:15)
[2018-06-18] MEDS ORDERED: Chlorhexidine Gluconate 2% 1 Pack (2 Cloths) TOPICAL ONE (06:15)
[2018-06-18] MEDS ORDERED: fentaNYL Citrate Inj 100 MCG/2 ML Ampul ONE (06:38)
[2018-06-18] MEDS ORDERED: ceFAZolin 2 GM Premix Inj 2 GM/50 ML PIGGYBACK IV.SIG SCH (07:00)
[2018-06-18] MEDS ORDERED: Sodium Chlor 0.9% Inj 500 ML IV.SIG SCH (07:00)
--- NOTE | 2018-06-18 08:53 | MP ---
cc: Jeffery Garcia MD DATE OF OPERATION: 06/18/2018 PREOPERATIVE DIAGNOSIS: Cervical incontinence. POSTOPERATIVE DIAGNOSIS: Advanced dilation approximately 4 cm, bulging membranes. PROCEDURE: Cervical cerclage rescue. SURGEON: Jeffery Garcia MD. ANESTHESIA: Spinal. ESTIMATED BLOOD LOSS: 50 mL. COMPLICATIONS: None. LAW REPORTER: None. FINDINGS: Findings were consistent with the already advanced dilation. Because of the advanced dilation and little cervix noted, only one suture of #1 Prolene was placed instead of the usual 2. DETAILS OF PROCEDURE: The patient was prepped and draped in dorsal lithotomy position. A weighted speculum was placed in the posterior vaginal vault. Anterior lip of the cervix was grasped with a single-tooth tenaculum. Then, #1 Prolene was placed at the 12 o'clock position and sutured in a circumferential manner, taking special attention not to rupture membranes. It was then tied at the 12 o'clock position and a second Prolene was attempted, although there was so little cervix left that the possibility of rupture of membranes was great and it was decided at this point to leave just 1 suture in. After good hemostasis noted, tenaculum and speculum were removed. The patient returned to recovery room in stable condition. Jeffery Garcia MD JSG/rs , 08:24 AM , 08:35 AM
[2018-06-18 08:54] VITALS: O2SAT 99
[2018-06-18 11:00] VITALS: TEMP 98.6
[2018-06-18] MEDS ORDERED: Naloxone Inj 0.4 MG/ML Vial IV.PUSH PRN (12:55)
[2018-06-18 13:14] VITALS: BP 113/48; RESP 16
[2018-06-18 14:00] VITALS: PULSE 99
[2018-06-18] MEDS ORDERED: Acetaminophen 325 MG Tablet PO PRN (14:00)
== END 2018-06-18 14:22 | disposition home or self-care (01) ==
LOC: HSDC 05:34 → HSDI 05:34 → H2E 09:19
PROVIDERS: ADMIT Obstetrics & Gynecology; ATTEND Obstetrics & Gynecology